=== PATIENT | female | born 1955 | race Two or more races ===

== ENCOUNTER 2024-01-16 20:40 | Emergency (ER) | payer MEDICARE, OTHER ==
[~2024-01-16] VITALS: Ht 167.6 cm; Wt 95.3 kg
[2024-01-16] MEDS ORDERED: ONDANSETRON HCL/PF 4 MG/2 ML VIAL ONE ×2 (21:04→22:43)
[2024-01-16 21:35] LABS: BASOPHILS % (AUTO) 0.4 % (0.0-2.0); EOSINOPHILS # (AUTO) 0.1 K/uL (0.0-0.7); EOSINOPHILS % (AUTO) 1.3 % (0.0-6.0); HEMATOCRIT 41 % (33-45); HEMOGLOBIN 13.7 g/dL (11.5-14.8); LYMPHOCYTES % (AUTO) 48.6 % (20.0-44.0); MEAN CORPUSCULAR HEMOGLOBIN 30 PG (26.0-33.0); MEAN CORPUSCULAR HGB CONC 33 g/dl (31.0-36.0); MEAN CORPUSCULAR VOLUME 89 fL (82-100); MONOCYTES # (AUTO) 0.5 K/uL (0.1-1.30); MONOCYTES % (AUTO) 4.4 % (2.0-12.0); NEUTROPHILS # (AUTO) 4.6 K/uL (1.8-8.9); NEUTROPHILS % (AUTO) 45.3 % (43.0-81.0); PLATELET COUNT (AUTO) 332 K/uL (150-450); RED BLOOD CELL COUNT(AUTO) 4.65 MIL/uL (4.0-5.2); WHITE BLOOD COUNT (AUTO) 10.2 K/uL (4.3-11.0)
[2024-01-16] MEDS: ONDANSETRON HCL/PF 4 MG/2 ML VIAL IVP ONE (21:38)
[2024-01-16] MEDS: IV NS 0.9% 500 ML BAG IV ONE (21:39)
[2024-01-16 21:48] LABS: CREATININE 0.7 mg/dL (0.6-1.3); POTASSIUM 3.3 mmol/L (3.5-5.1)
[2024-01-16 22:02] LABS: ALBUMIN 3.4 g/dL (3.4-5.0); BILIRUBIN,DIRECT 0.1 mg/dL (0.0-0.2); BILIRUBIN,TOTAL 0.2 mg/dL (0.2-1.0); TOTAL PROTEIN, SERUM 7.5 g/dL (6.4-8.2)
[2024-01-16 22:12] LABS: APPEARANCE,URINE SLIGHTLY CLOUDY (CLEAR); BILIRUBIN,URINE NEGATIVE (NEGATIVE); BLOOD, URINE NEGATIVE Ery/uL (NEGATIVE); KETONES,URINE NEGATIVE (NEGATIVE); LEUKOCYTE ESTERASE ,URINE NEGATIVE (NEGATIVE); NITRITE, URINE NEGATIVE (NEGATIVE); PH,URINE 6.5 (5.0-8.0); PROTEIN,URINE NEGATIVE (NEGATIVE); UGLUCOSE NEGATIVE (NEGATIVE); UROBILINOGEN,URINE 0.2 EU/dL (0.2)
[2024-01-16 22:13] LABS: COLOR,URINE LIGHT YELLOW (YELLOW)
[2024-01-16] MEDS ORDERED: ONDA4TAB5 PO (22:35)
[2024-01-16] MEDS: ONDANSETRON HCL/PF 4 MG/2 ML VIAL IV ONE (22:46)
[2024-01-16 22:59] LABS: ADD URINE CULTURE YES; BACTERIA,URINE Moderate /HPF (None Seen); RBC,URINE 0-2 /HPF (0-2); WBC,URINE NONE SEEN /HPF (0-3)
[2024-01-16] MEDS ORDERED: MECL-182 PO (23:10)
[2024-01-16] MEDS: MECLIZINE HCL 12.5 MG TABLET PO ONE (23:16)
[2024-01-16] MEDS ORDERED: MECLIZINE HCL 12.5 MG TABLET ONE (23:16)
[2024-01-17 03:51] VITALS: BP 150/93; TEMP 97.5; O2SAT 98
== END 2024-01-17 03:52 | disposition home or self-care (01) ==
LOC: ER 20:42
DX: R42 Dizziness and giddiness (principal); R11.2 Nausea with vomiting, unspecified; Z79.899 Other long term (current) drug therapy
CPT/HCPCS: 99285; 96374; 70450; 96376; 85025; 80048; 87086; 83690; 80076; 81001; 36415; J8597; J2405 ×2; J7030